=== PATIENT | male | born 1990 | race Caucasian/White ===

== ENCOUNTER 2021-10-31 21:20 | Emergency (ER) | payer MEDICAID ==
[~2021-10-31] VITALS: Ht 177.8 cm; Wt 87.0 kg
[2021-10-31 21:27] VITALS: BP 128/80
== END 2021-10-31 22:24 | disposition home or self-care (01) ==
LOC: ER 21:20
DX: Z04.89 Encounter for examination and observation for other specified reasons (principal); F99 Mental disorder, not otherwise specified; Z88.0 Allergy status to penicillin
CPT/HCPCS: 99283